=== PATIENT | female | born 2000 | race Caucasian/White ===

== ENCOUNTER → 2018-01-05 | Outpatient (CLI) | payer OTHER ==
--- NOTE | 2018-01-05 14:35 | RADIOLOGY IMAGING REPORT ---
FACILITY: [facility] PATIENT NAME: Win Wolf : 2000 MR: [id number] V: [id number] EXAM DATE: ORDERING PHYSICIAN: LESLIE SANTORO TECHNOLOGIST: Location: [facility] [place] Patient: Win Wolf : 2000 Visit/Account:[id number] Date of Sevice: 01/05/2018 Exam type: CHEST PA AND LAT History: Chest pain, shortness of breath Comparison: None. Findings: Lungs are hyperexpanded but clear. There is no focal infiltrate, pleural effusion or pneumothorax. Heart size is normal. The osseous structures demonstrate a mild scoliosis. IMPRESSION: 1. No acute cardiopulmonary disease. Report Dictated By: Cisco Guaman MD at 01/05/2018 2:29 PM Report E-Signed By: Cisco Guaman MD at 01/05/2018 2:30 PM WSN:[id number]
--- NOTE | 2018-01-05 14:55 | EKG ---
FACILITY: [facility] - [place] PATIENT NAME: HIMA CHI : [id number] MR: [id number] V: [id number] EXAM DATE: ORDERING PHYSICIAN: ISRAEL SANTORO TECHNOLOGIST: Naveen Huertas Reason : Blood Pressure : / mmHG Vent. Rate : 080 BPM Atrial Rate : 080 BPM P-R Int : 134 ms QRS Dur : 082 ms QT Int : 378 ms P-R-T Axes : 018 082 063 degrees QTc Int : 435 ms It appears there is a competing ectopic atrial focus as there appears to be two distinct P wave morph ologies No acute appearing ST-T findings No previous ECGs available Confirmed by ANEUDY BOND ([id number] on 01/05/2018 3:50:03 PM Referred By: Confirmed By:ANEUDY BOND
== END ==
LOC: RAD 13:40
PROVIDERS: ATTEND Nurse Practitioner Family
DX: R91.8 Other nonspecific abnormal finding of lung field (principal)
CPT/HCPCS: 71046; 93005